=== PATIENT | male | born 1975 | race Caucasian/White ===

== ENCOUNTER 2022-09-04 10:02 | Outpatient (CLI) | payer OTHER, SELFPAY ==
[2022-09-04 13:17] LABS: Chloride* 107 mmol/L (96-114)
[2022-09-04 13:18] LABS: Potassium* 4.6 mmol/L (3.6-5.1); Sodium* 142 mmol/L (135-149)
[2022-09-04 13:20] LABS: Creatinine* 0.7 mg/dL (0.5-1.5); Estimated Glomerular Filt Rate 115 ml/min
[2022-09-04 13:21] LABS: Blood Urea Nitrogen* 14 mg/dL (5-24); Calcium* 9.9 mg/dL (8.4-10.6); Carbon Dioxide* 27 mmol/L (20-32); Glucose* 114 mg/dL (60-115); HDL Cholesterol* 83 mg/dL (>=40); Triglycerides* 73 mg/dL (40-149)
[2022-09-04 14:52] LABS: PSA Screen* 1.78 ng/mL (0.10-4.00)
[2022-09-05 18:54] LABS: Cholesterol* 129 mg/dL (90-199); LDL Cholesterol Calculated 31 mg/dL (<100)
== END 2022-09-04 10:03 | disposition home or self-care (01) ==
PROVIDERS: PCP Family Medicine; Visit Provider Family Medicine
DX: Z00.00 Encounter for general adult medical examination without abnormal findings (principal); E78.5 Hyperlipidemia, unspecified; Z80.42 Family history of malignant neoplasm of prostate; Z13.1 Encounter for screening for diabetes mellitus
CPT/HCPCS: 80048; 80061; 84153

== ENCOUNTER 2023-09-06 09:59 | Outpatient (CLI) | payer OTHER, SELFPAY | END 2023-09-06 10:00 | disposition home or self-care (01) | PROVIDERS: PCP Family Medicine; Visit Provider Family Medicine | DX: Z13.1 Encounter for screening for diabetes mellitus (principal); E78.2 Mixed hyperlipidemia; Z12.5 Encounter for screening for malignant neoplasm of prostate; Z80.42 Family history of malignant neoplasm of prostate | CPT/HCPCS: 80048; 80061; G0103 ==

== ENCOUNTER 2024-09-07 11:07 | Outpatient (CLI) | payer OTHER, SELFPAY | END 2024-09-07 11:08 | disposition home or self-care (01) | PROVIDERS: PCP Family Medicine; Visit Provider Family Medicine | DX: E78.5 Hyperlipidemia, unspecified (principal); Z12.5 Encounter for screening for malignant neoplasm of prostate | CPT/HCPCS: 80061; G0103 ==